=== PATIENT | male | born 1955 | race Caucasian/White ===

== ENCOUNTER → 2021-06-18 14:43 | Outpatient (CLI) | payer MEDICARE, MEDICAID, SELFPAY ==
--- NOTE | 2021-06-18 14:47 | DI.ECHO.S_ITS ---
[facility] +---------+ : : [address] : : : : [id number] : : : : Phone: [phone]+ Echocardiogram Report + + :Name: JESSICA CAMPOS Study Date: 06/18/2021 Height: 72 in : :[facility] ReadingLocation: Weight: 255 lb : : Gender: Male BSA: 2.4 m2 : :: 1955 Age: 66 yrs BP: 116/88 mmHg: :Reason For Study: ISCHEMIC CARDIOMYOPAHTY : :Ordering Physician: LUIS, : :RAMESH Performed By: Lizzie Figueroa : :Referring: RAMESH SMITH : + + Interpretation Summary 1) Mildly enlarged left ventricle with normal systolic function (EF 55-60%). 2) Apical wall motion abnormality may reflect pacemaker activation. 3) The right ventricle grossly appears normal in size with probable normal systolic function. There is a pacemaker lead in the right ventricle. 4) No significant valvular abnormalities. 5) The ascending aorta is mildly enlarged at 4.0cm. 6) Compared to the Echo done 02/02/2020, pacemaker wire is present on the current study. Procedure: A two-dimensional transthoracic echocardiogram with color flow and Doppler was performed. The study quality was technically difficult. A contrast injection of Definity was performed to improve assessment of LV function. Comparison is made with the echocardiogram of 02/02/2020. The heart rate ranged between 78-95 bpm during the study. Left Ventricle: The estimated left ventricular end diastolic volume is 178 ml. The left ventricle is mildly dilated. There is mild concentric left ventricular hypertrophy. The ejection fraction is estimated to be 55-60%. Apical wall motion abnormality may reflect pacemaker activation. Diastolic function could not be accurately assessed due to paced rhythm. Right Ventricle: The right ventricle grossly appears normal in size with probable normal systolic function. There is a pacemaker lead in the right ventricle. Atria: The left atrium is mildly dilated. Right atrial size is normal. There is no Doppler evidence for an interatrial shunt. Mitral Valve: The mitral valve is normal in structure and function. There is trace mitral regurgitation. Aortic Valve: The aortic valve is trileaflet. The aortic valve opens well. There is no aortic valve stenosis. No aortic regurgitation is present. Tricuspid Valve: The tricuspid valve is not well visualized, but is grossly normal. There is mild tricuspid regurgitation. The right ventricular systolic pressure is estimated to be at least 34 mmHg based on an estimated right atrial pressure of 3 mm Hg. Pulmonic Valve: The pulmonic valve is not well seen, but is grossly normal. There is mild pulmonic regurgitation. Great Vessels: The aortic root is normal size. The ascending aorta is mildly enlarged. The IVC is of normal diameter and collapses greater than 50% with a sniff. This suggests a low right atrial pressure of 3 mm Hg. Pericardium/ Pleura There is no pericardial effusion. There is no pleural effusion. MMode/2D Measurements & Calculations LVIDd: 6.1 cm LVOT diam: 2.5 cm LVIDs: 4.4 cm Ao root diam: 3.6 cm FS: 27.5 % asc Aorta Diam: 4.0 cm IVSd: 1.2 cm LVPWd: 1.2 cm LV oates. diameter/BSA (cm/m^2): 2.6 LV sys. diameter/BSA (cm/m^2): 1.9 LA A2 area: 24.0 cm2 RA long axis: 5.7 cm LA A4 area: 24.6 cm2 RA area: 21.8 cm2 LA length (vol): 6.3 cm RA vol: 70.6 ml LA vol: 80.0 ml RA : 29.9 ml/m2 LA vol index: 33.8 ml/m2 IVC diam: 1.9 cm Doppler Measurements & Calculations Ao V2 max: 124.6 cm/sec LVOT Max Brian: 81.9 cm/sec Ao V2 mean: 83.5 cm/sec LV V1 max P.7 mmHg Ao max P.2 mmHg LV V1 VTI: 14.0 cm Ao mean P.3 mmHg HEIDE(I,D): 4.3 cm2 Ao V2 VTI: 16.7 cm HEIDE(V,D): 3.3 cm2 sev ratio: 0.84 HEIDE indexed to BSA (cm^2/m^2): 1.8 MV E max brian: 61.1 cm/sec TR max brian: 279.2 cm/sec MV A max brian: 2.0 cm/sec TR max P.2 mmHg MV E/A: 31.1 PA V2 max: 89.8 cm/sec Med Peak E' Brian: 9.8 cm/sec PA V2 mean: 63.4 cm/sec E/E' med: 6.2 PA mean P.7 mmHg Lat Peak E' Brian: 9.2 cm/sec PA pr(Accel): 29.3 mmHg E/E' lat: 6.6 E/e' average: 6.4 MV dec time: 0.18 sec SV(LVOT): 71.1 ml Reading Physician:05:32 PM
== END ==
PROVIDERS: PCP Family Medicine; Referring Provider Physician Assistant Medical; Visit Provider Physician Assistant Medical
DX: I07.1 Rheumatic tricuspid insufficiency (principal); I37.1 Nonrheumatic pulmonary valve insufficiency; I25.5 Ischemic cardiomyopathy; I77.89 Other specified disorders of arteries and arterioles; Z95.0 Presence of cardiac pacemaker
CPT/HCPCS: 93306; Q9957

== ENCOUNTER → 2022-03-05 15:40 | Outpatient (CLI) | payer MEDICARE, MEDICAID, SELFPAY | PROVIDERS: PCP Family Medicine; Referring Provider Family Medicine; Visit Provider Family Medicine | DX: R78.81 Bacteremia (principal); B95.62 Methicillin resistant Staphylococcus aureus infection as the cause of diseases classified elsewhere | CPT/HCPCS: 36415; 87040 ==

== ENCOUNTER → 2024-07-04 13:58 | Outpatient (CLI) | payer MEDICARE, MEDICAID, SELFPAY ==
--- NOTE | 2024-07-04 15:25 | DI.CT.S_ITS ---
PROCEDURE: CT CHEST ABD PEL W CON INDICATIONS: AAA,HX OF NICOTINE. Prior Whipple surgery. Surveillance for pancreatic cancer. TECHNIQUE: Oral contrast was given in this patient. After the administration of intravenous contrast, 5 mm thick sections acquired from the lung apices to the symphysis. 5 mm coronal and sagittal reformats were performed, with additional 7 mm MIP reformats through the lungs. For radiation dose reduction, the following was used: automated exposure control, adjustment of mA and/or kV according to patient size. COMPARISON: [facility], CT, CT ANGIO CHEST PE, 02/02/2020, 16:50. [facility], CT, CT CHEST ABDOMEN PELVIS WITH CONTRAST, 03/02/2022, 22:26. [facility], CT, ABDOMEN/PELVIS WITH CONTRAST, 07/03/2017, 0:42. FINDINGS: Image quality: Excellent. CHEST: Lower Neck: No enlarged lymph nodes. Thyroid: No thyroid nodules which require sonographic follow up, per consensus guidelines. Axillae: No enlarged lymph nodes. Chest Wall: There is a left-sided AICD. Lungs and Pleura: Within the right lower lobe, there is a 5 mm nodule seen, as on series 3, image 166. Heart: Heart size is normal. No pericardial effusion. There is advanced coronary artery calcification. Thoracic Vessels: The aorta and pulmonary arteries demonstrate normal size. Mediastinum and Carlie: No enlarged lymph nodes. Esophagus: No wall thickening. No hiatal hernia. ABDOMEN: Liver: No solid mass. Gallbladder: Removed. Biliary ducts: No biliary dilation. Pancreas: Prior Whipple procedure change can be seen. The remaining pancreas is largely atrophic. Spleen: Size is within normal limits. Incidental note is made of an accessory splenule along the anterior aspect of the primary spleen. Adrenal Glands: There is a left adrenal nodule seen, measuring 34 by 29 mm, which is similar to the prior. No convincing adrenal nodules are seen elsewhere. Kidneys and Ureters: No hydronephrosis. No solid mass. No complex renal cystic lesion which requires follow up. Stomach and Bowel: Extensive distal colonic diverticulosis is seen, without findings of active diverticulitis. The more proximal colon demonstrates no significant abnormality. No dilated loops of small bowel are seen. Peritoneum: No abnormal intraperitoneal fluid. No free air. Ventral Wall: A mild periumbilical hernia is seen, containing fat. Abdominal Nodes: No retroperitoneal or mesenteric adenopathy by size criteria. Vessels: A 4 cm abdominal aortic aneurysm is seen, with associated mural thrombus. The IVC demonstrates normal caliber. PELVIS: Pelvic Organs: Unremarkable. Bladder: No bladder wall thickening, accounting for underdistention. Pelvic Nodes: No enlarged lymph nodes. Miscellaneous: Fat containing inguinal hernias are seen, right worse than left. Bones: No aggressive osseous abnormality. Accentuated thoracic kyphosis is seen. Age-appropriate bony degenerative changes are seen. IMPRESSION: There is a 5 mm right lower lobe nodule seen. This is not significantly changed compared to 2020 and regarded to be benign. There is a 4 cm abdominal aortic aneurysm seen. There is a stable left adrenal nodule. No progression can be seen compared to 2017. This is considered to be benign. Additional findings: Left-sided AICD Advanced coronary artery calcification Cholecystectomy Accessory splenule Fat containing periumbilical hernia Extensive distal colonic diverticulosis, without findings of active diverticulitis. Bilateral fat containing inguinal hernias Dictated by: Clint Ugalde M.D. on 07/05/2024 at 11:43 Approved by: Clint Ugalde M.D. on 07/05/2024 at 11:50
== END ==
PROVIDERS: PCP Family Medicine; Referring Provider Family Medicine; Visit Provider Family Medicine
DX: I71.43 Infrarenal abdominal aortic aneurysm, without rupture (principal); Z12.11 Encounter for screening for malignant neoplasm of colon; Z85.07 Personal history of malignant neoplasm of pancreas; F17.210 Nicotine dependence, cigarettes, uncomplicated; Z95.810 Presence of automatic (implantable) cardiac defibrillator; R91.1 Solitary pulmonary nodule; E27.9 Disorder of adrenal gland, unspecified; I25.10 Atherosclerotic heart disease of native coronary artery without angina pectoris; K57.90 Diverticulosis of intestine, part unspecified, without perforation or abscess without bleeding; K42.9 Umbilical hernia without obstruction or gangrene; K40.20 Bilateral inguinal hernia, without obstruction or gangrene, not specified as recurrent
CPT/HCPCS: 71260; 74177; Q9967

== ENCOUNTER 2025-01-13 08:08 | Emergency (ER) | payer MEDICARE, MEDICAID, SELFPAY ==
[2025-01-13] VITALS (11 sets, daily range): BP systolic 139–176; BP diastolic 93–106; PULSE 69–114; RESP 13–18; TEMP 36.8; O2SAT 95–99; BMI 31.4
--- NOTE | 2025-01-13 08:39 | ED_ITS ---
HPI - Abdominal Pain General Chief Complaint: Urogenital-Male Stated Complaint: R side hernia pain Time Seen by Provider: 01/13/25 08:29 Source: patient and EMS Mode of arrival: EMS History of Present Illness HPI narrative: 70-year-old gentleman history of testicular torsion, bilateral inguinal hernia repair at [facility] 5 years ago, and hypertension presents with right inguinal hernia pain and swelling this morning and was having difficulty reducing it. Patient denies nausea vomiting diarrhea constipation hematuria penile discharge or testicular pain. Other than what is stated 14 point review of system is negative Related Data Home Medications Medication Instructions Recorded Confirmed atorvastatin 10 mg tablet (Lipitor) 10 mg PO HS ##0 09/05/16 carvedilol 12.5 mg tablet (Coreg) 12.5 mg PO BID ##0 09/05/16 clopidogrel 75 mg tablet (Plavix) 75 mg PO QDAY ##0 09/05/16 furosemide 20 mg tablet 20 mg PO QDAY ##0 09/05/16 nitroglycerin 0.4 mg sublingual 0.4 mg sublingual PRN ##0 09/05/16 tablet (Nitrostat) zolpidem 10 mg tablet (Ambien) 10 mg PO HSP PRN ##0 09/05/16 Previous Rx's Medication Instructions Recorded omeprazole 20 mg capsule,delayed 20 mg PO BID #60 caps 09/07/16 release bisacodyl 5 mg tablet,delayed 5 mg PO Q DAY #10 tabs 07/02/17 release (Fleet Laxative (bisacodyl)) hydromorphone 2 mg tablet 2 - 4 mg (1 - 2 x 2 mg) PO Q6H PRN 07/02/17 (Dilaudid) #15 tabs oxycodone-acetaminophen 5 mg-325 1 tab PO Q4HP PRN #15 tabs 07/03/17 mg tablet (Percocet) oxycodone-acetaminophen 5 mg-325 1 - 2 tab PO Q6HP PRN #10 tabs 10/06/17 mg tablet (Percocet) Allergies Allergy/AdvReac Type Severity Reaction Status Date / Time No Known Drug Allergies Allergy Unknown Verified 01/13/25 08:22 [NO KNOWN DRUG ALLERGIES] Review of Systems Review of Systems ROS Unobtainable: All systems reviewed & are unremarkable except as noted in HPI and below Patient History Social History Smoking Status: Current every day smoker Smoking Status: Current every day smoker tobacco type: cigarettes Exam Narrative Exam Narrative: GENERAL: 70 year old patient appears stated age. Well-developed patient, in mild distress. HEAD: Atraumatic. Normocephalic. EYES: Pupils equal round and reactive. Extraocular motions intact. No scleral icterus. No injection or drainage. ENT: Nose without bleeding, purulent drainage. Throat without erythema, tonsillar hypertrophy or exudate. Airway patent. NECK: Trachea midline. Non tender CARDIOVASCULAR: Regular rate and rhythm without murmurs, gallops, or rubs. RESPIRATORY: Clear to auscultation. Breath sounds equal bilaterally. No wheezes, rales, or rhonchi. GASTROINTESTINAL: Abdomen soft, non-tender, nondistended. R inguinal hernia soft and reducible with no skin color changes EXTREMITIES: No edema or joint tenderness. BACK: Nontender without deformity or crepitance. No flank tenderness. NEURO: AOx3. SKIN: No rash or erythema of visible areas Initial Vital Signs Initial Vital Signs: Vital Signs Blood Pressure 146/100 H 01/13/25 08:15 Course Orders Ordered: ED Orders 01/13/25 08:40 CT abdomen pelvis w con Stat 01/13/25 09:05 Ammonia (NH3) Stat Complete Blood Count AUTO DIFF Stat Comprehensive Metabolic Panel Stat Lipase Stat Discontinued Medications Sodium Chloride (Normal Saline 0.9%) 1,000 mls @ 1,000 mls/hr IV BOLUS ONE Stop: 01/13/25 10:11 Last Admin: 01/13/25 09:20 Dose: 1,000 mls/hr Documented By: ZACK Ketorolac Tromethamine (Ketorolac 30 Mg/Ml Vial) 15 mg IV NOW ONE Stop: 01/13/25 09:13 Last Admin: 01/13/25 09:20 Dose: 15 mg Documented By: ZACK Vital Signs Vital signs: Vital Signs - 8 hr 01/13/25 08:15 01/13/25 08:16 01/13/25 08:22 Temperature 98.2 F Pulse Rate 71 82 Respiratory Rate 16 Blood Pressure 146/100 H 148/100 H Pulse Oximetry 96 95 Oxygen Delivery Method Room Air 01/13/25 08:30 01/13/25 08:30 01/13/25 09:00 Temperature Pulse Rate 70 69 Respiratory Rate 17 Blood Pressure 139/93 H Pulse Oximetry 95 97 Oxygen Delivery Method 01/13/25 09:00 Temperature Pulse Rate Respiratory Rate Blood Pressure 142/94 H Pulse Oximetry Oxygen Delivery Method MDM - Abdominal Pain Lab Data 01/13/25 09:05 01/13/25 09:05 Labs: Lab Results 01/13/25 Range/Units 09:05 WBC 5.4 (4.5-11.0) X10^3/uL RBC 4.47 L (4.5-5.9) X10^6/uL Hgb 14.6 (13.5-17.5) g/dL Hct 42.8 (41-53) % MCV 95.8 (80-100) fL MCH 32.6 (26-34) PG MCHC 34.1 (30-36) % RDW 13.2 (11.6-14.8) % Plt Count 160 (150-400) X10^3/uL Neut % (Auto) 75.8 H (50-75) % Lymph % (Auto) 14.4 L (25-40) % [place] % (Auto) 6.8 (3-14) % Eos % (Auto) 2.3 (2-4) % Baso % (Auto) 0.7 (0-2) % Neut # (Auto) 4100 (5721-7768) /uL Lymph # (Auto) 800 L (4662-4586) /uL [place] # (Auto) 400 (0-900) /uL Eos # (Auto) 100 (0-450) /uL Baso # (Auto) 0 (0-100) /uL Sodium 138 (137-145) mmol/L Potassium 4.3 (3.4-5.1) mmol/L Chloride 106 (98-107) mmol/L Carbon Dioxide 24 (22-32) mmol/L BUN 16 (9-20) mg/dL Creatinine 0.74 (0.66-1.25) mg/dL Estimated GFR > 60 (>60) mL/min BUN/Creatinine Ratio 21.6 (6-22) Glucose 113 H (80-110) mg/dL Calcium 9.3 (8.4-10.2) mg/dL Total Bilirubin 1.0 (0.2-1.3) mg/dL AST 35 (17-59) IU/L ALT 22 (<50) IU/L Alkaline Phosphatase 65 (38-126) U/L Ammonia < 9 L (9-30) umol/L Total Protein 7.5 (6.3-8.2) g/dL Albumin 4.2 (3.5-5.0) g/dL Globulin 3.3 (1.7-4.1) g/dL Albumin/Globulin Ratio 1.3 (1.0-2.8) Lipase 44 (23-300) U/L Point of care testing: Urine Dip Bedside Urine Glucose Negative Bedside Urine Bilirubin - Negative Bedside Urine Ketone - Negative Urine Specific [place] 1.010 Bedside Urine Occult Blood - Negative Bedside Urine pH 5.5 Bedside Urine Protein - Negative Bedside Urine Urobilinogen - Negative Bedside Urine Nitrite - Negative Bedside Urine Leukocytes - Negative Esterase Imaging Data CT scan - abdomen/pelvis: Radiologist's Impression: [address] [address] [address] Scan Report Signed Patient: Raudel Garcia MR#: [id number] : 1955 Acct:[id number] Age/Sex: 70 / M Date of Service: 01/13/25 Loc: ED Accession Number: [id number] Procedure: CT abdomen pelvis w con Ordering Provider: Adelso Quezada D.O. PROCEDURE: CT ABDOMEN PELVIS W CON INDICATIONS: abd pain TECHNIQUE: After the administration of intravenous contrast, axial sections acquired from the lung bases to the pubic symphysis. Coronal and sagittal reformats were performed. For radiation dose reduction, the following was used: automated exposure control, adjustment of mA and/or kV according to patient size. COMPARISON: [facility], CT, CT CHEST ABD PEL W CON, 07/04/2024, 15:29. FINDINGS: Image quality: Diagnostic. Lower Chest: No significant findings. ABDOMEN: Liver: No solid mass. Left pneumobilia Gallbladder: Cholecystectomy. Biliary ducts: No biliary dilation. Pancreas: No ductal dilation. Spleen: Size is within normal limits. Adrenal Glands: No adrenal nodules. Kidneys and Ureters: No hydronephrosis. No solid mass. No complex renal cystic lesion which requires follow up. Small renal cysts Stomach and Bowel: Normal colonic caliber, without significant wall thickening. Multiple diverticula arise from the sigmoid colon without evidence of diverticulitis. Peritoneum: No abnormal intraperitoneal fluid. No free air. Ventral Wall: Small periumbilical hernia, stable. Abdominal Nodes: No retroperitoneal or mesenteric adenopathy by size criteria. Vessels: Distal abdominal aortic aneurysm 3.8 cm PELVIS: Pelvic Organs: Unremarkable. Bladder: No bladder wall thickening, accounting for underdistention. Pelvic Nodes: No enlarged lymph nodes. Miscellaneous: Bilateral inguinal hernias present. Several small bowel loops noted in the right inguinal hernia. Left inguinal hernia contains fat. inguinal hernia(s) contain fat without bowel involvement. Bones: Degenerative disc disease and arthropathy noted in lower lumbar spine. IMPRESSION: Bilateral inguinal hernias, larger on the right containing several loops of small bowel. No obstruction. Chronic findings as above MDM Narrative Medical decision making narrative: All lab work reviewed CT scan reviewed. All vital signs nurse triage note medication list previous ER visits reviewed case discussed with Dr. Nath the surgeon on-call no acute surgery at this time but the follow up as outpatient clinic for further options. Differential diagnosis includes incarceration hernia, strangulated hernia, small-bowel obstruction. Return with new or worsening symptoms Discharge Plan Departure Patient Disposition: Home Clinical Impression: Inguinal hernia recurrent bilateral Qualifiers: Obstruction and gangrene presence: without obstruction or gangrene Qualified Code(s): K40.21 - Bilateral inguinal hernia, without obstruction or gangrene, recurrent Instructions: DI for Groin Hernia Activity Restrictions/Additional Instructions: Follow up with Dr. Ramirez surgeon in the office call office for appointment Prescriptions: No Action atorvastatin [Lipitor] 10 MG tablet 10 mg PO HS Qty: 0 carvedilol [Coreg] 12.5 MG tablet 12.5 mg PO BID Qty: 0 clopidogrel [Plavix] 75 MG tablet 75 mg PO QDAY Qty: 0 furosemide 20 MG tablet 20 mg PO QDAY Qty: 0 zolpidem [Ambien] 10 MG tablet 10 mg PO HSP PRNQty: 0 nitroglycerin [Nitrostat] 0.4 MG tablet, sublingual 0.4 mg Sublingual PRNQty: 0 omeprazole 20 MG capsule,delayed release(DR/EC) 20 mg PO BID Qty: 60 0RF hydromorphone [Dilaudid] 2 MG tablet 2 - 4 mg PO Q6H PRNQty: 15 0RF bisacodyl [Fleet Laxative (bisacodyl)] 5 MG tablet,delayed release (DR/EC) 5 mg PO Q DAY Qty: 10 0RF oxycodone-acetaminophen [Percocet] 5 MG/325 MG tablet 1 tab PO Q4HP PRNQty: 15 0RF oxycodone-acetaminophen [Percocet] 5 MG/325 MG tablet 1 - 2 tab PO Q6HP PRNQty: 10 0RF Referrals: Zion Bustillo MD [Primary Care Provider] - Stand Alone Forms: Patient Portal/API/Survey
[2025-01-13] MEDS: KETOROLAC 30 MG/ML VIAL 15 MG IV (09:20)
[2025-01-13] MEDS: SODIUM CHLORIDE 0.9% 1,000 ML 1000 ML IV (09:20)
[2025-01-13 09:22] LABS: Add Manual Diff / Slide Review NO; Basophils Absolute Auto 0 /uL (0-100); Basophils Percent Auto 0.7 % (0-2); Eosinophils Absolute Auto 100 /uL (0-450); Eosinophils Percent Auto 2.3 % (2-4); Hematocrit 42.8 % (41-53); Hemoglobin 14.6 g/dL (13.5-17.5); Lymphocytes Absolute Auto 800 /uL (1100-4500); Lymphocytes Percent Auto 14.4 % (25-40); Mean Corpuscular HGB Conc 34.1 % (30-36); Mean Corpuscular Hemoglobin 32.6 PG (26-34); Mean Corpuscular Volume 95.8 fL (80-100); Monocytes Absolute Auto 400 /uL (0-900); Monocytes Percent Auto 6.8 % (3-14); Neutrophils Absolute Auto 4100 /uL (1500-7000); Neutrophils Percent Auto 75.8 % (50-75); Platelet Count 160 X10^3/uL (150-400); Red Blood Cell Count 4.47 X10^6/uL (4.5-5.9); Red Cell Distribution Width 13.2 % (11.6-14.8); White Blood Cell Count 5.4 X10^3/uL (4.5-11.0)
[2025-01-13 09:32] LABS: Alanine Aminotransferase 22 IU/L (<50); Albumin 4.2 g/dL (3.5-5.0); Albumin Globulin Ratio 1.3 (1.0-2.8); Alkaline Phosphatase 65 U/L (38-126); Ammonia (NH3) < 9 umol/L (9-30); Aspartate Aminotransferase 35 IU/L (17-59); BUN Creatinine Ratio 21.6 (6-22); Blood Urea Nitrogen 16 mg/dL (9-20); Calcium 9.3 mg/dL (8.4-10.2); Carbon Dioxide 24 mmol/L (22-32); Chloride 106 mmol/L (98-107); Estimated Glomerular Filt Rate > 60 mL/min (>60); Globulin 3.3 g/dL (1.7-4.1); Glucose 113 mg/dL (80-110); HEMOLYSIS 35 (0-50); Lipase 44 U/L (23-300); Potassium 4.3 mmol/L (3.4-5.1); Sodium 138 mmol/L (137-145); Total Protein 7.5 g/dL (6.3-8.2)
--- NOTE | 2025-01-13 09:37 | PC.NURSE ---
PT states he has history of right testicular torsion. He also has a history of right spermatocord swelling. Testicles appear enlarged but no errythema or discoloration. PT endorsing his right hernia went back into place while with EMS.
== END 2025-01-13 11:53 | disposition home or self-care (01) ==
PROVIDERS: Emergency Provider Family Medicine; PCP Family Medicine
DX: K40.21 Bilateral inguinal hernia, without obstruction or gangrene, recurrent (principal)
CPT/HCPCS: 36415; 74177; 80053; 81003; 82140; 83690; 85025; 96361; 96374; 99284; J1885; Q9967